=== PATIENT | male | born 1970 | race African-American/Black ===

== ENCOUNTER 2019-06-03 13:44 | Emergency (ER) | payer SELFPAY ==
[~2019-06-03] VITALS: Ht 185.4 cm; Wt 97.0 kg
[2019-06-03] MEDS ORDERED: KETOROLAC 30MG/ML VIAL IM ONE (18:15)
[2019-06-03] MEDS ORDERED: HYDROCODONE/ACETAMINOPHEN 5/325MG TABLET PO ONE (19:15)
[2019-06-03 19:38] VITALS: BP 130/75
== END 2019-06-03 19:40 | disposition home or self-care (01) ==
LOC: ER 13:44
DX: M77.9 Enthesopathy, unspecified (principal); F17.210 Nicotine dependence, cigarettes, uncomplicated; F12.10 Cannabis abuse, uncomplicated
CPT/HCPCS: 29125; 73110; 73130; 96372; 99283; J1885